=== PATIENT | female | born 1970 | race Caucasian/White ===

== ENCOUNTER 2017-05-14 14:32 | Emergency (ER) | payer SELFPAY ==
[~2017-05-14] VITALS: Ht 154.9 cm; Wt 61.4 kg
[2017-05-14 14:35] VITALS: BP 159/104
[2017-05-14 15:07] LABS: BILIRUBIN,URINE NEGATIVE (NEGATIVE); GLUCOSE, URINE (UA) NEGATIVE (NEGATIVE); KETONES,URINE NEGATIVE (NEGATIVE); LEUKOCYTE ESTERASE ,URINE NEGATIVE (NEGATIVE); NITRATE,URINE NEGATIVE (NEGATIVE); OCCULT BLOOD,URINE LARGE (NEGATIVE); PROTEIN,URINE NEGATIVE (NEGATIVE); UROBILINOGEN,URINE 0.2 mg/dL (<=1.0)
[2017-05-14 15:14] LABS: APPEARANCE,URINE HAZY (CLEAR)
[2017-05-14 15:16] LABS: BACTERIA,URINE Few /HPF (None Seen)
[2017-05-14 15:19] LABS: WBC,URINE 0-2 /HPF (0-5)
[2017-05-14 15:21] LABS: SQUAMOUS EPITHELIAL CELL,UR Moderate /LPF (None Seen)
== END 2017-05-14 17:03 | disposition left against medical advice (07) ==
LOC: EMS 14:34
DX: Z53.21 Procedure and treatment not carried out due to patient leaving prior to being seen by health care provider (principal)
CPT/HCPCS: 99281